=== PATIENT | male | born 1990 | race Caucasian/White ===

== ENCOUNTER 2023-12-11 11:20 | Outpatient (AMB) | payer OTHER, SELFPAY ==
--- NOTE | 2023-12-11 11:15 | MHC.PC.OV ---
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 Pt would like to talk about anxiety and depression. Allergies No Known Allergies Allergy (Verified 12/11/23 12:00) Medication List - Last Reconciled 12/11/23 by RENETTA Olmos No Known Home Meds Tobacco use date assessed: 12/11/23 Dental Screening Dental Screen Date: 12/11/23 Did you have a dental visit in the last 12 months?: Yes Did you have a dental problem in the last 6 months where you did not have access to dental care?: No Was dental information given to patient?: Patient has dentist HPI HPI Comments History of Present Illness Details This is a 33-year-old male who I am meeting for the 1st time. Patient's last PCP visit was 4 years prior. He is up-to-date with tetanus last administration was 2020. Will order fasting labs. Patient has a past medical history significant for. Hyperlipidemia: Will draw all this lab and address based on results. Intermittent sexual dysfunction: Patient will be instructed on the importance of smoking cessation, exercise, will draw testosterone with free T4. General anxiety and depression: Patient is declining therapist her psychiatric care. States that he is experiencing insomnia secondary to anxiety. Currently going through stressful life circumstances. Patient is denying SI/HI at this time [facility] Surgical History Hx of umbilical hernia repair Family History Mother Myocardial infarction Breast cancer Lung cancer Father No problems noted. Social History Patient Tobacco Use Status: Current everyday Tobacco user e-Cigarette/Vaping Use: Never Used service: No Current occupational status: employed Cognitive needs: No Hearing needs: No Vision needs: Yes Questionnaire PHQ-9 Over the last 2 weeks, how often have you been bothered by any of the following problems? 1. Little interest or pleasure in doing things: several days 2. Feeling down, depressed, or hopeless: nearly every day 3. Trouble falling or staying asleep, or sleeping too much: not at all 4. Feeling tired or having little energy: several days 5. Poor appetite or overeating: nearly every day 6. Feeling bad about yourself - or that you are a failure or have let yourself or your family down: nearly every day 7. Trouble concentrating on things, such as reading the newspaper or watching television: not at all 8. Moving or speaking so slowly that other people could have noticed. Or the opposite - being so fidgety or restless that you have been moving around a lot more than usual: not at all 9. Thoughts that you would be better off or of hurting yourself in some way: not at all Total score: 11 Depression Screening Interpretation: Positive Depression Screening Follow-up: New Medication prescribed and Follow-up Visit Requested Depression Screening Done: Yes [id number] - PHQ-9 Billing: Yes Source: Developed by Drs. Isiah Talamantes, Rosa Elena Valverde, Michael Gusman and colleagues, with an educational jose from [employer]. Thrive Questionnaire Date Thrive assessed: 12/11/23 I am a: Patient What is your living situation today?: I have a steady place to live Within the past 12 months, did the food you bought not last and you didn't have the money to get more?: Never true Within the past 12 months, did you worry whether your food would run out before you got money to buy more?: Never true Do you have trouble paying for medicines?: No Do you have trouble getting transportation to medical appointments?: No Do you have trouble paying your heating and electricity bill?: No Do you have trouble taking care of your child, family member or friend?: No Do you have trouble with day-to-day activities such as bathing, preparing meals, shopping, managing finances, etc.?: No Are you currently unemployed and looking for a job?: No Are you interested in more education?: No Currently or been in a relationship where the following occur: I choose not to answer this question THRIVE Score: 0 AUDIT C Alcohol Use Questionnaire (AUDIT-C) 1. How often do you have a drink containing alcohol?: Never 3. How often do you have six or more drinks on one occasion?: Never Total Score: 0 Score Reviewed/Action Taken: No CAROLEE-7 AMB Questionnaire CAROLEE-7 Date CAROLEE - 7 assessed: 12/11/23 Feeling nervous, anxious, or on edge: 1 = Several days Not being able to stop or control worryin = More than half the days Worrying too much about different things: 2 = More than half the days Trouble relaxin = Several days Being so restless that it is hard to sit still: 1 = Several days Becoming easily annoyed or irritable: 1 = Several days Feeling afraid as if something awful might happen: 2 = More than half the days Total CAROLEE-7 score (0-4 normal; 5-9 mild; 10-14 moderate; 15-21 severe): 10 Source: Developed by Drs. Isiah Talamantes, Rosa Elena Valverde, Michael Gusman and colleagues, with an educational jose from [employer]. CAROLEE-7 Assessment Billing CAROLEE-7 Assessment Tool: CAROLEE-7 Assessment 76674 (Starting medication today.) Review of Systems Const All systems reviewed & are unremarkable except as noted in HPI and below Denies chills and Denies fever(s) Card Denies chest pain and Denies dyspnea Resp Denies dyspnea GI Denies diarrhea, Denies nausea and Denies vomiting Psych Reports anxiety, Reports depression, Denies homicidal ideation and Denies suicidal ideation Physical exam (Primary Care) Vital Signs: Last Vital Signs Pulse 80 12/11/23 11:29 BP 110/80 12/11/23 11:29 Pulse Ox 98 12/11/23 11:29 Oxygen Delivery Method Room Air 12/11/23 11:29 Care Plan Goal for BP management: Blood pressure is controlled BMI result Body Mass Index 37.2 Tobacco/Smoking Status: Tobacco use Status Tobacco use date assessed 12/11/23 12/11/23 11:15 Patient Tobacco Use Status Current everyday Tobacco 12/11/23 11:15 e-Cigarette/Vaping Use Never Used 12/11/23 11:15 Are you ready to quit: No Depression Screening Interpretation: Positive Depression Screening Follow-up: New Medication prescribed and Follow-up Visit Requested Currently or been in a relationship where the following occur: I choose not to answer this question Const Other: Appearance: Alert.? Oriented X3.? No acute distress.? Head: Normocephalic. Eyes: Sclera white. CVS: Normal heart rate and rhythm.? Pulses normal.?S1 and S2. No rubs/gallops/murmurs. Respiratory: No respiratory distress.? Breath sounds normal.? Neuro: Oriented X 3.? No motor deficit.? No sensory deficit. CN 2-12 intact Assessment and Plan Assessment & Plan (1) Anxiety and depression: Comment: Patient is declining therapist or psychiatric care at this time. Patient denies SI/HI. Patient be started on escitalopram 5 mg p.o. daily. Will give hydroxyzine 25 mg p.o. p.r.n. at night for insomnia secondary to anxiety. Patient has resources if he develops SI/HI. Patient has been educated on side effects of this medication. He understands signs of worsening symptoms and when to report to the office or when to present to the ED. Code(s): F41.9 - Anxiety disorder, unspecified; F32.A - Depression, unspecified (2) Hyperlipidemia: Comment: Will draw lipid panel. Code(s): E78.5 - Hyperlipidemia, unspecified Qualifiers: Hyperlipidemia type: unspecified Qualified Code(s): E78.5 - Hyperlipidemia, unspecified Plan: draw labs Plan Follow up in 4 weeks. Orders: Orders Vitamin D 25-OH (D2 and D3) Today Z13.21 - Encounter for screening for nutritional disorder Vitamin B6 Today Z13.21 - Encounter for screening for nutritional disorder Vitamin B12 Today Z13.21 - Encounter for screening for nutritional disorder Lipid Panel Today Z13.220 - Encounter for screening for lipoid disorders TSH reflex Free T4 Today R37 - Sexual dysfunction, unspecified UA CC w/rflx Micro + Cult Today Z13.89 - Encounter for screening for other disorder Complete Blood Count Auto Diff Today Z13.0 - Encounter for screening for diseases of the blood and blood-forming organs and certain disorders involving the immune mechanism Comprehensive Met. Panel Today Z91.89 - Other specified personal risk factors, not elsewhere classified Medications: New escitalopram oxalate 5 mg PO DAILY 90 tabs 0RF hydroxyzine HCl 25 mg PO BEDTIME PRN 30 tabs 0RF anxiety and insomnia Coding Level of Care Code Est Pt Level 3 (93522) Diagnoses Anxiety and depression F41.9; F32.A Hyperlipidemia, unspecified hyperlipidemia type E78.5 Hyperlipidemia type: unspecified Additional Codes CAROLEE-7 Assessment Billing - CAROLEE-7 Assessment Tool: CAROLEE-7 Assessment 26009 ([id number]) Time Spent (min) 26
[2023-12-11 11:29] VITALS: BP 110/80; PULSE 80; O2SAT 98; BMI 37.2
== END 2023-12-11 13:02 | disposition home or self-care (01) ==
PROVIDERS: PCP Nurse Practitioner Primary Care; Visit Provider Nurse Practitioner Primary Care
DX: F41.9 Anxiety disorder, unspecified (principal); F32.A Depression, unspecified; E78.5 Hyperlipidemia, unspecified
CPT/HCPCS: 96127; 99213

== ENCOUNTER 2023-12-12 07:30 | Outpatient (REF) | payer OTHER, SELFPAY ==
[2023-12-12 11:13] LABS: MANUAL DIFF FLAG NO
[2023-12-12 11:32] LABS: Appearance Urine Clear; Color Urine Yellow; Glucose Urine UA Negative (Negative); Leukocyte Esterase Urine Negative (Negative); Nitrite Urine Negative (Negative); Specific Gravity - Urine 1.025 (1.005-1.025); Urine Blood Negative (Negative); Urine Ketones Negative (Negative); Urine Protein Negative (Neg-Trace)
[2023-12-12 11:33] LABS: Basophils Absolute Auto 0.1 X10*3/uL (0.0-0.2); Basophils Percent Auto 0.9 % (0-2); Eosinophils Absolute Auto 0.2 X10*3/uL (0.0-0.4); Hematocrit 47.3 % (42.0-52.0); Hemoglobin 16.2 g/dl (14.0-18.0); Imm Gran Abs Auto 0.04 X10*3/uL (0.00-0.03); Imm Gran Pct Auto 0.4 % (0.0-0.4); Lymphocytes Absolute Auto 2.8 X10*3/uL (1.2-4.9); Lymphocytes Percent Auto 30.5 % (20-40); Mean Corpuscular HGB Conc 34.2 g/dl (31.0-36.0); Mean Corpuscular Hemoglobin 30.2 pg (27.0-33.0); Mean Corpuscular Volume 88.1 fL (80.0-98.0); Mean Platelet Volume 10.7 fL (9.4-12.4); Monocytes Absolute Auto 0.6 X10*3/uL (0.1-1.2); Monocytes Percent Auto 6.3 % (2-11); Neutrophils Absolute Auto 5.6 x10*3/uL (2.0-8.3); Neutrophils Percent Auto 59.9 % (45-73); Platelet Count 237 X10*3/uL (160-400); Red Blood Count 5.37 X10*6/uL (4.60-5.80); Red Cell Distribution Width 13.5 % (11.0-16.0); White Blood Count 9.3 X10*3/uL (4.8-10.8)
[2023-12-12 11:53] LABS: Alanine Aminotransferase 40 U/L (0-40); Albumin Level 4.5 g/dL (3.5-5.0); Alkaline Phosphatase 95 U/L (39-117); Anion Gap 14 (12-20); Aspartate Amino Transferase 26 U/L (5-37); Bilirubin Total 0.6 mg/dL (0.0-1.0); Blood Urea Nitrogen 15 mg/dL (9-16); Calcium 9.5 mg/dL (8.4-10.2); Carbon Dioxide 24 mmol/L (22-29); Chloride 105 mmol/L (96-108); Cholesterol 259 mg/dL (<200); Estimated Glomerular Filt Rate > 60; Glucose Random 86 mg/dL (60-115); HDL Cholesterol 39 mg/dL (>40); LDL Cholesterol Calculated 185 mg/dL (<100); Potassium 3.8 mmol/L (3.3-5.1); Sodium 139 mmol/L (135-145); Total Protein 7.6 g/dL (6.5-8.0); Triglycerides 175 mg/dL (<150)
[2023-12-12 12:06] LABS: TSH reflex Free T4 0.94 uIU/mL (0.32-4.0)
[2023-12-12 12:11] LABS: Vitamin B12 291 pg/mL (200-900)
[2023-12-16 23:23] LABS: Vitamin B6 14.9 ng/mL (2.1-21.7)
[2023-12-19 11:39] LABS: Vitamin D 25-OH, D2 <4 ng/mL; Vitamin D 25-OH, D3 13 ng/mL; Vitamin D 25-OH, Total 13 ng/mL (30-100)
== END 2023-12-12 07:31 | disposition home or self-care (01) ==
LOC: HO.HMGCLDS 07:30
PROVIDERS: PCP Nurse Practitioner Primary Care; Visit Provider Nurse Practitioner Primary Care
DX: R37 Sexual dysfunction, unspecified (principal); Z13.21 Encounter for screening for nutritional disorder; Z13.0 Encounter for screening for diseases of the blood and blood-forming organs and certain disorders involving the immune mechanism; Z91.89 Other specified personal risk factors, not elsewhere classified; Z13.220 Encounter for screening for lipoid disorders; Z13.89 Encounter for screening for other disorder
CPT/HCPCS: 36415; 80053; 80061; 81003; 82306; 82607; 84207; 84443; 85025

== ENCOUNTER 2024-01-07 15:15 | Outpatient (AMB) | payer OTHER, SELFPAY ==
[2024-01-07 15:22] VITALS: BP 130/80; PULSE 104; TEMP 37; O2SAT 97
--- NOTE | 2024-01-07 15:22 | MHC.OFFWIV ---
Intake Vital Signs 01/07/24 15:22 Height 5 ft 5.5 in BP 130/80 Blood Pressure Location Lt brachial Position Sitting Pulse 104 H Pulse Source Pulse Oximeter Temp 98.6 F Temp Source Oral Pulse Oximetry (%) 97 Oxygen Delivery Method Room Air Intake Visit Reasons: Sore throat Intake Note: pt is here for sore throat Patient Tobacco Use Status: Current everyday Tobacco user Allergies No Known Allergies Allergy (Verified 01/07/24 15:22) Do you need a note to return to daycare/school/sports/work: Yes HPI HPI Comments History of Present Illness Details Patient is a 33-year-old male complaining of 2 days of sore throat, fatigue, subjective fevers and 1 episode of dizziness yesterday afternoon. He denies a cough. He states he has some shortness of breath occasionally. 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 REPLACED BY [facility] Surgical History Hx of umbilical hernia repair Family History Mother Myocardial infarction Breast cancer Lung cancer Father No problems noted. Social History Patient Tobacco Use Status: Current everyday Tobacco user e-Cigarette/Vaping Use: Never Used service: No Current occupational status: employed Cognitive needs: No Hearing needs: No Vision needs: Yes Review of Systems Const All systems reviewed & are unremarkable except as noted in HPI and below Physical Exam Vital Signs: Last Vital Signs Temp 98.6 F 01/07/24 15:22 Pulse 104 H 01/07/24 15:22 BP 130/80 01/07/24 15:22 Pulse Ox 97 01/07/24 15:22 Oxygen Delivery Method Room Air 01/07/24 15:22 Const General: cooperative, healthy appearing, comfortable and no acute distress Orientation/consciousness: patient oriented x3 Limitations: no limitations HEENT Head: Yes normal to inspection Ears: hearing grossly normal bilaterally, external ears normal, TM's normal bilaterally and Abnormal EAC present erythema General nose exam: Normal external nose present, Normal nares present and No nasal discharge present Face and sinus: Yes normal facial exam and Yes sinuses nontender Mouth: Normal oral and palatal mucosa present and moist mucous membranes Throat: Yes tonsils normal, Yes uvula midline and Yes posterior oropharynx abnormal (Erythema) Eyes General: appearance normal, both eyes and all related structures Neck Neck: Yes normal visual inspection Resp Effort & Inspection: normal respiratory effort and able to speak in complete sentences Skin General skin exam: no rashes or lesions noted Neuro General: patient oriented x3 Extrem General: Yes normal to inspection and Yes no clubbing, cyanosis or edema Results AMB Rapid Strep AMB Rapid Strep Positive Last Edit by Celio Guerra CMA on 01/07/24 15:38 Assessment & Plan Assessment & Plan (1) Strep pharyngitis: Code(s): J02.0 - Streptococcal pharyngitis Plan: RX'd amoxicllin as positive for strep pharyngitis. Recommended treating with [id number] medications including ibuprofen for sore throat and Tylenol for a fever. Recommended staying out of work until he is fever free for 24 hours and feeling better. Plan see above Orders: Orders AMB Rapid Strep Screen Today Z13.9 - Encounter for screening, unspecified Medications: New amoxicillin 500 mg PO BID 20 tabs 0RF Coding Level of Care Code Est Pt Level 3 (47106) Diagnoses Strep pharyngitis J02.0
== END 2024-01-07 15:52 | disposition home or self-care (01) ==
PROVIDERS: PCP Nurse Practitioner Primary Care; Visit Provider Physician Assistant
DX: Z13.9 Encounter for screening, unspecified (principal); J02.0 Streptococcal pharyngitis
CPT/HCPCS: 87880; 99213

== ENCOUNTER 2024-01-09 07:59 | Outpatient (AMB) | payer OTHER, SELFPAY ==
[2024-01-09 08:14] VITALS: BP 126/74; PULSE 98; TEMP 37; O2SAT 94; BMI 37.1
--- NOTE | 2024-01-09 08:14 | AM.OFFWIN_ITS ---
Intake Vital Signs 01/09/24 08:14 Height 5 ft 5.5 in Weight 226 lb 2 oz BMI 37.1 BP 126/74 Blood Pressure Location Rt brachial Position Sitting Pulse 98 Pulse Source Pulse Oximeter Temp 98.6 F Temp Source Oral Pulse Oximetry (%) 94 Oxygen Delivery Method Room Air Intake Visit Reasons: EP cough congestion sore throat fever [id number] Intake Note: pt is here for cough, congestion with fever. patient has strep and is already taking antibiotics Patient Tobacco Use Status: Current everyday Tobacco user Allergies No Known Allergies Allergy (Verified 01/09/24 08:17) Do you need a note to return to daycare/school/sports/work: Yes HPI HPI Comments History of Present Illness Details Patient is a 33-year-old male complaining of worsening cough, head congestion and a pain in the center of his chest when he coughs. He states he was diagnosed with strep throat if this clinic 2 days ago and has been taking the antibiotic as directed. He states his throat does feel better however he continues to experience other symptoms. He states he had a fever of 102F yesterday which came down with Tylenol. He states he has been unable to sleep because when he lays down his cough is worse and he gets into the coughing fits that he can not stop. He states he has been drinking plenty of fluids. He is a current smoker. He denies any history of asthma but has used an inhaler in the past. He admits to a work exposure to COVID and strep in the past week. [facility] Surgical History Hx of umbilical hernia repair Family History Mother Myocardial infarction Breast cancer Lung cancer Father No problems noted. Social History Patient Tobacco Use Status: Current everyday Tobacco user e-Cigarette/Vaping Use: Never Used service: No Current occupational status: employed Cognitive needs: No Hearing needs: No Vision needs: Yes Review of Systems Const All systems reviewed & are unremarkable except as noted in HPI and below Physical Exam Vital Signs: Last Vital Signs Temp 98.6 F 01/09/24 08:14 Pulse 98 01/09/24 08:14 BP 126/74 01/09/24 08:14 Pulse Ox 94 01/09/24 08:14 Oxygen Delivery Method Room Air 01/09/24 08:14 BMI result Body Mass Index 37.1 Const General: cooperative, healthy appearing, comfortable and no acute distress Orientation/consciousness: patient oriented x3 Limitations: no limitations HEENT Head: Yes normal to inspection Ears: hearing grossly normal bilaterally, external ears normal and TM's normal bilaterally General nose exam: Normal external nose present, Normal nares present and No nasal discharge present Face and sinus: Yes normal facial exam and Yes sinuses nontender Mouth: Normal oral and palatal mucosa present and moist mucous membranes Throat: Yes tonsils normal, Yes uvula midline and Yes posterior oropharynx abnormal (Erythema) Eyes General: appearance normal, both eyes and all related structures Neck Neck: Yes normal visual inspection Resp Effort & Inspection: normal respiratory effort, able to speak in complete sentences, Actively coughing, no respiratory distress, not tachypneic, no tripod positioning and no use of accessory muscles Auscultation: clear to auscultation bilaterally Cardio Rate: regular rate Rhythm: regular rhythm Heart sounds: normal S1 and S2 Skin General skin exam: no rashes or lesions noted Neuro General: patient oriented x3 Extrem General: Yes normal to inspection and Yes no clubbing, cyanosis or edema Assessment & Plan Assessment & Plan (1) URI (upper respiratory infection): Code(s): J06.9 - Acute upper respiratory infection, unspecified Qualifiers: URI type: unspecified viral URI Qualified Code(s): J06.9 - Acute upper respiratory infection, unspecified Plan: Vital signs are stable, we will test for COVID to be thorough as patient did have work exposure, question of viral illness on top of the strep pharyngitis. Recommended patient stay out of work until he is 24 hours fever free and feeling better. Plan See above Orders: Orders SARS-CoV2/FLU/RSV Today J06.9 - Acute upper respiratory infection, unspecified Medications: New albuterol sulfate 90 mcg/actuation 2 puffs inhalation Q6H PRN 8.5 grams 0RF shortness of breath or wheezing or cough benzonatate 100 mg PO BID-TID PRN 10 caps 0RF cough Coding Level of Care Code Est Pt Level 3 (30199) Diagnoses Viral upper respiratory tract infection J06.9 URI type: unspecified viral URI
== END 2024-01-09 08:55 | disposition home or self-care (01) ==
PROVIDERS: PCP Nurse Practitioner Primary Care; Visit Provider Physician Assistant
DX: J06.9 Acute upper respiratory infection, unspecified (principal)
CPT/HCPCS: 99213

== ENCOUNTER 2024-01-09 08:37 | Outpatient (REF) | payer OTHER, SELFPAY ==
[2024-01-09 12:29] LABS: Influenza A PCR NEGATIVE (Negative); Influenza B PCR NEGATIVE (Negative); Resp Syncy Virus RNA Qual PCR NEGATIVE (Negative); SARS COV2 PCR INHOUSE NEGATIVE (Negative)
== END 2024-01-09 08:38 | disposition home or self-care (01) ==
LOC: HO.LAB 08:37
PROVIDERS: Visit Provider Physician Assistant
DX: J06.9 Acute upper respiratory infection, unspecified (principal)
CPT/HCPCS: 0241U

== ENCOUNTER 2024-01-31 08:44 | Outpatient (REF) | payer OTHER, SELFPAY ==
--- NOTE | ~2024-01-31 | XR_ITS ---
EXAMINATION: XR WRIST, RIGHT CLINICAL INFORMATION: Pain COMPARISON: None available. TECHNIQUE: PA, lateral, and oblique views of the right wrist. FINDINGS: No acute visible fracture or dislocation. Joint spaces and alignment are maintained. Soft tissues are unremarkable. XR/XR wrist RT min 3V IMPRESSION: No acute visible fracture or dislocation.
== END 2024-01-31 08:45 | disposition home or self-care (01) ==
LOC: HO.HMGCX 08:44
PROVIDERS: PCP Nurse Practitioner Family; Visit Provider Nurse Practitioner Family
DX: M25.531 Pain in right wrist (principal)
CPT/HCPCS: 73110

== ENCOUNTER 2024-03-12 10:39 | Outpatient (REF) | payer OTHER, SELFPAY ==
[2024-03-12 11:08] LABS: Binax Internal Control QC Valid; Binax Now Covid-19 Ag Negative (Negative); Binax Performed by: HO.BONILM
== END 2024-03-12 10:40 | disposition home or self-care (01) ==
LOC: HO.HMGCLDS 10:39
PROVIDERS: PCP Nurse Practitioner Family; Visit Provider Nurse Practitioner Family
DX: J06.9 Acute upper respiratory infection, unspecified (principal)
CPT/HCPCS: 87811